=== PATIENT | female | born 1940 | race Caucasian/White ===

== ENCOUNTER 2024-12-11 01:54 | Observation (INO) | payer OTHER ==
[2024-12-11] MEDS ORDERED: NA CHLORIDE 0.9% 500 ML ONE (02:19)
[2024-12-11] MEDS ORDERED: ONDANSETRON 4 MG/2 ML VIAL ONE ×3 (02:19→08:22)
[2024-12-11] MEDS ORDERED: BISACODYL E.C. 5 MG TAB PO ONE (02:19)
[2024-12-11] MEDS ORDERED: LACTULOSE 20 GM/30 ML UCUP ONE ×2 (02:20→04:54)
[2024-12-11 03:05] LABS: Albumin 3.6 g/dL (3.4-5.0); Anion Gap 9.6 mEq/L (5.0-15.0); Bilirubin Total 0.3 mg/dL (0.2-1.0); Globulin 3.7 g/dL (2.3-3.5); Magnesium 2.2 mg/dL (1.6-2.4); Potassium 3.6 mEq/L (3.5-5.1); Protein, Total 7.3 g/dL (6.4-8.2)
[2024-12-11 03:08] LABS: Specific Gravity 1.016 (1.005-1.030); Sqamous Epithelial None Seen /HPF (None Seen); Urine Bacteria None Seen /HPF (<20); Urine Bilirubin NEGATIVE (Negative); Urine Blood Negative (Negative); Urine Clarity Extremely Turbid (Clear); Urine Color Light-Yellow (Yellow); Urine Culture Reflex Order NOT NEEDED; Urine Glucose NEGATIVE (Negative); Urine Ketones NEGATIVE (Negative); Urine Microscopic Reflex YN ORDER UMIC; Urine Nitrite NEGATIVE (Negative); Urine Protein NEGATIVE (Negative); Urine RBC None Seen /HPF (None Seen); Urine Urobilinogen Normal (Normal); Urine WBC None Seen /HPF (<5)
[2024-12-11 03:15] LABS: Absolute Eosinophils 0.1 K/uL (0-0.5); Absolute Lymphocytes (CBC) 0.9 K/uL (0.7-4.9); Absolute Monocytes 0.6 K/uL (0.1-1.3); Absolute Neutrophil 6.4 K/uL (1.8-8.0); Basophils % 0.5 % (0-1.3); Eosinophils % 1.6 % (0-4.4); Hematocrit 41.8 % (36.0-45.0); Hemoglobin 14.2 g/dL (12.0-15.0); Lymphocytes % 11.6 % (15.3-44.8); MCH 29.4 pg (27.0-35.0); MCV 86.7 fL (80-100); Monocytes % 7.6 % (3.3-12.3); Neutrophils % 78.7 % (41.7-73.7); Nucleated Red Blood Cells % 0.1 % (0-0); Platelets 172 thou/uL (152-406); RBC Red Blood Cell Count 4.82 M/uL (3.86-4.86); Red Cell Distribution Width 14.4 % (12.1-15.2)
--- NOTE | 2024-12-11 06:23 | RAD REPORT ---
EXAM DESCRIPTION: Abdomen Pelvis W Contrast CLINICAL HISTORY: Abd pain;Constipation COMPARISON: August 05, 2019 CT Abdomen Without Then With Contrast. No Prior Images. January 04, 2019 CT Abdomen Wit hout Then With Contrast. November 20, 2022 Ultrasound Kidney Bilateral. TECHNIQUE: Contiguous axial sections of the abdomen and pelvis were obtained with intravenous contrast. This exa m was performed according to our departmental dose-optimization program, which includes automated exposure control, adjustment of the mA and/or kV according to patient size and/or use of iterative re construction technique. FINDINGS: Lower Chest: The imaged lung bases are clear. No pleural or pericardial effusion. There is a minimal sliding-type hiatal hernia. Organs: The liver, spleen, gallbladder, pancreas, and adrenal glands are normal. The right kidney is normal. Left kidney demonstrates cortical scarring with postsurgical resection changes. GI/Bowel: There are no CT findings of small bowel obstruction. Moderate-large amount of retained feca l debris throughout the colon. The cecum is distended up to 6 cm. The appendix is not visualized. No acute bowel wall inflammation. Pelvis: The rectum is moderately distended with fecal debris suggesting impaction. The bladder is nor mal. No adenopathy or free fluid. There are postsurgical changes at the rectosigmoid junction. Peritoneum/Retroperitoneum: No intraperitoneal free air. No intraperitoneal free fluid. No mesenteric or retroperitoneal lymphadenopathy. Bones/Soft Tissues: There are no suspicious-appearing lytic or blastic osseous lesions. IMPRESSION: 1. Constipation with rectal fecal impaction. 2. Postsurgical changes left kidney. RECOMMENDATIONS: Electronically signed by: Bonifacio Landin MD 12/11/2024 06:[address] [facility] Due to temporary technical issues with the PACS/[employer] reporting system, reports are being billie d by the in-house radiologist without review as a courtesy to ensure prompt reporting the interpreting radiologist is fully responsible for the content of the report. Transcribed Date/Time: 12/11/2024 6:23 AM
[2024-12-11] MEDS ORDERED: NA CHLORIDE 0.9% 1,000 ML ONE ×2 (06:24→08:11)
--- NOTE | 2024-12-11 06:31 | EDPHYS ---
Physician Documentation [facility] Name: Petrona Michael Age: 84 yrs Sex: Female : 1940 Arrival Date: 12/11/2024 Time: 01:54 Bed 4 Private MD: ED Physician Alex Montes HPI: 12/11 02:15 This 84 yrs old Female presents to ER via Ambulatory with complaints of Constipation, cp Abdominal Pain. 02:15 The patient presents with abdominal pain constipation. Onset: The symptoms/episode cp began/occurred gradually, and became worse today. 02:15 Associated signs and symptoms: Pertinent positives: constipation, last bowel movement 3 cp weeks ago, Pertinent negatives: blood in stools, diarrhea, fever, vomiting. Severity of pain: in the emergency department the pain is unchanged despite home interventions. Historical: - Allergies: 02:16 No Known Allergies; bm8 - Home Meds: 02:16 Unable to obtain [Active]; bm8 - PMHx: 02:16 Hypertensive disorder; bm8 - PSHx: 02:16 Appendectomy; section; bm8 - Immunization history:: Adult Immunizations up to date. - Infectious Disease History:: Denies. - Social history:: Smoking status: Patient denies any tobacco usage or history of. ROS: 02:20 Constitutional: Negative for body aches, chills, fever, poor PO intake, cp 02:20 Eyes: Negative for injury, pain, redness, and discharge, cp 02:20 ENT: Negative for drainage from ear(s), ear pain, sore throat, difficulty swallowing, difficulty handling secretions, 02:20 Cardiovascular: Negative for chest pain, palpitations, 02:20 Respiratory: Negative for cough, shortness of breath, wheezing, 02:20 Abdomen/GI: Positive for abdominal pain, nausea, constipation, Negative for vomiting, diarrhea, black/tarry stool, rectal bleeding, 02:20 Neuro: Negative for altered mental status, dizziness, headache, numbness, weakness, 02:20 All other systems are negative, Exam: 02:25 Constitutional: The patient appears in no acute distress, alert, awake, non-toxic, well cp developed, well nourished, uncomfortable, 02:25 Head/Face: Normocephalic, atraumatic. cp 02:25 Eyes: Periorbital structures: appear normal, Conjunctiva: normal, no exudate, no injection, Sclera: no appreciated abnormality, Lids and lashes: appear normal, bilaterally, 02:25 ENT: External ear(s): are unremarkable, Mouth: Lips: moist, Oral mucosa: moist, Posterior pharynx: Airway: no evidence of obstruction, patent, 02:25 Chest/axilla: Inspection: normal, 02:25 Cardiovascular: Rate: normal, 02:25 Respiratory: the patient does not display signs of respiratory distress, Respirations: normal, no use of accessory muscles, no retractions, 02:25 Abdomen/GI: Inspection: abdomen appears normal, Bowel sounds: active, all quadrants, Palpation: soft, in all quadrants, moderate abdominal tenderness, in the right lower quadrant and left lower quadrant, rebound tenderness, is not appreciated, involuntary guarding, is not appreciated, 02:25 Neuro: Orientation: to person, place \T\ time. Mentation: is normal, Vital Signs: 02:03 BP 173 / 71; Pulse 66; Resp 16; Temp 97.8; Pulse Ox 99% ; Weight 45.81 kg; Height 4 ft. bm8 10 in. ; Pain 8/10; 03:00 BP 151 / 75; Pulse 64; Resp 18; Pulse Ox 94% on R/A; kd3 03:30 BP 148 / 74; Pulse 66; Resp 17; Pulse Ox 98% on R/A; kd3 04:27 BP 162 / 72; Pulse 74; Resp 18; Pulse Ox 98% on R/A; kd3 05:01 BP 148 / 89; Pulse 72; Resp 18; Pulse Ox 97% on R/A; kd3 06:06 BP 149 / 88; Pulse 81; Resp 19; Pulse Ox 98% on R/A; kd3 06:48 BP 98 / 43; Pulse 62; Resp 17; Temp 97.8; Pulse Ox 95% ; Pain 7/10; bm8 07:03 Pulse Ox 98% on 2 lpm NC; kd3 07:20 BP 168 / 87; Pulse 72; Resp 16 S; Temp 97.5(TE); Pulse Ox 100% on R/A; aa5 02:03 Body Mass Index 21.11 (45.81 kg, 147.32 cm) bm8 02:03 Pain Scale: Adult bm8 06:48 Pain Scale: Adult bm8 [place] Coma Score: 05:29 Eye Response: spontaneous(4). Motor Response: obeys commands(6). Verbal Response: bm8 oriented(5). Total: 15. 06:48 Eye Response: spontaneous(4). Motor Response: obeys commands(6). Verbal Response: bm8 oriented(5). Total: 15. MDM: 02:03 Medical Screening Exam initiated meryl 03:00 Differential diagnosis: bowel obstruction, diverticulitis, gastritis, urinary tract cp infection, constipation, fecal impaction. 12/11 02:13 Order name: CBC with Diff; Complete Time: 03:23 cp 12/11 03:23 Interpretation: Normal except: GROVER% 78.7; LYM% 11.6. cp 12/11 02:13 Order name: CMP; Complete Time: 03:23 cp 12/11 03:23 Interpretation: Normal except: NA 133; GLUC 116; BUN 23; GFR 88; ALK 134; GLOB 3.7; A/G cp 1.0. 12/11 02:13 Order name: Lipase; Complete Time: 03:23 cp 12/11 02:13 Order name: Magnesium; Complete Time: 03:23 cp 12/11 03:27 Interpretation: Reviewed. cp 12/11 02:13 Order name: UA Rfx Nolan Cult if indicated; Complete Time: 03:23 cp 12/11 03:24 Interpretation: Normal except: [facility] Extremely Turbid; UESTR 25; JONATHAN Cx 2+. cp 12/11 07:50 Order name: Basic Metabolic Panel EDMS 12/11 07:50 Order name: Basic Metabolic Panel EDMS 12/11 07:50 Order name: Basic Metabolic Panel EDMS 12/11 07:50 Order name: Basic Metabolic Panel EDMS 12/11 07:50 Order name: Basic Metabolic Panel EDMS 12/11 07:50 Order name: Basic Metabolic Panel EDMS 12/11 07:50 Order name: CBC with Automated Diff EDMS 12/11 07:50 Order name: CBC with Automated Diff EDMS 12/11 07:50 Order name: CBC with Automated Diff EDMS 12/11 07:50 Order name: CBC with Automated Diff EDMS 12/11 07:50 Order name: CBC with Automated Diff EDMS 12/11 07:50 Order name: CBC with Automated Diff EDMS 12/11 07:50 Order name: Magnesium EDMS 12/11 07:50 Order name: Magnesium EDMS 12/11 07:50 Order name: Magnesium EDMS 12/11 07:50 Order name: Magnesium EDMS 12/11 07:50 Order name: Magnesium EDMS 12/11 07:50 Order name: Magnesium EDMS 12/11 07:50 Order name: Phosphorus EDMS 12/11 07:50 Order name: Phosphorus EDMS 12/11 07:50 Order name: Phosphorus EDMS 12/11 07:50 Order name: Phosphorus EDMS 12/11 07:50 Order name: Phosphorus EDMS 12/11 07:50 Order name: Phosphorus EDMS 12/11 02:13 Order name: CT Abd/Pelvis - PO and IV Contrast cp 12/11 02:13 Order name: IV Saline Lock; Complete Time: 02:34 cp 12/11 02:13 Order name: Labs collected and sent; Complete Time: 02:34 cp Administered Medications: 02:34 Drug: Ondansetron IVP 4 mg IVP once; over 2 minutes Route: IVP; Site: right antecubital;kd3 06:44 Follow up: Response: No adverse reaction bm8 02:34 Drug: NS 0.9% IV 500 ml 500 ml IV at 1 bolus once; to be given as a bolus over 60 kd3 minutes Volume: 500 ml; Route: IV; Rate: 1 bolus; Site: right antecubital; 06:44 Follow up: Response: No adverse reaction; IV Status: Completed infusion bm8 02:34 Drug: Lactulose PO 30 grams 45 ml PO once Volume: 45 ml; Route: PO; kd3 06:44 Follow up: Response: No adverse reaction bm8 02:34 Drug: Dulcolax PO Delayed Release Tablet 5 mg PO once Route: PO; kd3 06:44 Follow up: Response: No adverse reaction bm8 04:56 Drug: Lactulose PO 30 grams 45 ml PO once Volume: 45 ml; Route: PO; kd3 06:44 Follow up: Response: No adverse reaction bm8 06:29 Drug: Ondansetron IVP 4 mg IVP once; over 2 minutes Route: IVP; Site: right antecubital;bm8 06:44 Follow up: Response: No adverse reaction bm8 06:29 Drug: NS 0.9% IV 1000 ml IV at 1000 ml once; to be given as a bolus over 60 minutes bm8 Route: IV; Rate: 1000 ml; Site: right antecubital; 07:30 Follow up: IV Status: Completed infusion; IV Intake: 1000ml aa5 06:43 Drug: morphine IVP or IV 2 mg IVP once over 4 mins Route: IVP; Infused Over: 4 mins; bm8 Site: right antecubital; 07:20 Follow up: Response: No adverse reaction; Pain is decreased aa5 06:43 Drug: Dulcolax [place] Suppository 10 mg [place] once Route: [place]; bm8 06:44 Follow up: Response: No adverse reaction bm8 Disposition Summary: 12/11/24 06:30 Hospitalization Ordered Notes: Hospitalization Status: Observation [facility] Provider: Christiano Ware cha Location: Telemetry/MedSurg (observation) meryl Condition: Fair meryl Problem: new meryl Symptoms: have improved meryl Bed/Room Type: Standard [facility] Room Assignment: 231(12/11/24 08:24) ss Diagnosis - Abdominal pain, Generalized meryl - Nausea meryl - Constipation - with fecal impaction [facility] Discharge Instructions: - Abdominal Pain, Adult meryl - Abdominal Pain, Adult, [id number] meryl - Discharge Summary Sheet cp - Constipation, Adult cp Forms: - Medication Reconciliation Form meryl - SBAR form [facility] - Leadership Thank You Letter [facility] Prescriptions: - Dulcolax (bisacodyl) 10 mg Rectal suppository - insert 1 suppository RECTAL route every 12 hours for 5 days; 10 suppository; [facility] Refills: 0, Product Selection Permitted - Miralax 17 gram Oral powder in packet - take 1 packet ORAL route daily as needed for constipation; 10 packet; Refills: meryl 0, Product Selection Permitted - Lactulose 10 gram/15 mL Oral solution - take 30 milliliters ORAL route every 12 hours As needed until bowel movement; cp 300 milliliter; Refills: 0, Product Selection Permitted Signatures: Dispatcher [employer] Alex Sanchez MD MD cha Blanchard, Shelby RN RN ss Alex Shay PA PA cp Doucette, Kyli RN RN kd3 Alfredo Maldonado RN RN bm8 Beatrice Nelson RN aa5 Corrections: (The following items were deleted from the chart) 02:16 02:16 Home Meds: None; bm8 bm8 08:24 06:30 meryl ss
--- NOTE | 2024-12-11 06:31 | ER ---
Nurse's Notes [facility] Name: Petrona Michael Age: 84 yrs Sex: Female : 1940 Arrival Date: 12/11/2024 Time: 01:54 Bed 4 Private MD: Diagnosis: Abdominal pain, Generalized;Nausea;Constipation-with fecal impaction Presentation: 12/11 02:03 Chief complaint: Patient states: I havent been able to poop in 3 weeks. bm8 02:03 Coronavirus screen: At this time, the client does not indicate any symptoms associated bm8 with coronavirus-19. Ebola Screen: Patient negative for fever greater than or equal to 101.5 degrees Fahrenheit, and additional compatible Ebola Virus Disease symptoms Patient denies exposure to infectious person. Patient denies travel to an Ebola-affected area in the 21 days before illness onset. No symptoms or risks identified at this time. Initial Sepsis Screen: Does the patient meet any 2 criteria? No. Patient's initial sepsis screen is negative. Does the patient have a suspected source of infection? No. Patient's initial sepsis screen is negative. Risk Assessment: Do you want to hurt yourself or someone else? Patient reports no desire to harm self or others. Onset of symptoms was November 20, 2024. 02:03 Method Of Arrival: Ambulatory bm8 02:03 Acuity: KATHRYN 3 bm8 Triage Assessment: 02:16 General: Appears in no apparent distress. uncomfortable, Behavior is calm, cooperative, bm8 appropriate for age. Pain: Complains of pain in abdomen Pain currently is 8 out of 10 on a pain scale. EENT: No deficits noted. No signs and/or symptoms were reported regarding the EENT system. Neuro: No deficits noted. Level of Consciousness is awake, alert, obeys commands, Oriented to person, place, time, situation, Appropriate for age. Cardiovascular: Denies chest pain, Heart tones S1 S2 present Capillary refill < 3 seconds in bilateral fingers Patient's skin is warm and dry. Respiratory: Airway is patent Respiratory effort is even, unlabored, Respiratory pattern is regular, symmetrical, Breath sounds are clear bilaterally. GI: Abdomen is flat, non-distended, Bowel sounds hypoactive in right lower quadrant and left lower quadrant Reports constipation. : No signs and/or symptoms were reported regarding the genitourinary system. Derm: No signs and/or symptoms reported regarding the dermatologic system. Musculoskeletal: No signs and/or symptoms reported regarding the musculoskeletal system. Historical: - Allergies: 02:16 No Known Allergies; bm8 - Home Meds: 02:16 Unable to obtain [Active]; bm8 - PMHx: 02:16 Hypertensive disorder; bm8 - PSHx: 02:16 Appendectomy; section; bm8 - Immunization history:: Adult Immunizations up to date. - Infectious Disease History:: Denies. - Social history:: Smoking status: Patient denies any tobacco usage or history of. Screenin:35 [facility] ED Fall Risk Assessment (Adult) History of falling in the last 3 months, kd3 including since admission No falls in past 3 months (0 pts) Confusion or Disorientation No (0 pts) Intoxicated or Sedated No (0 pts) Impaired Gait No (0 pts) Mobility Assist Device Used No (0 pt) Altered Elimination No (0 pt) Score/Fall Risk Level 0 - 2 = Low Risk Oriented to surroundings. Abuse screen: Denies threats or abuse. Denies injuries from another. Nutritional screening: No deficits noted. Tuberculosis screening: No symptoms or risk factors identified. Assessment: 02:35 General: pt assisted to the restroom via wheelchair for urine sample collection. Pt IV kd3 access in the right A/C, pt placed back on continuous monitoring. No further requests at this time. . 04:09 Reassessment: pt to ct. bm8 05:29 Reassessment: pt has made two attempts to have bowel movement. First had watery bm8 diarrhea and the 2nd attempt was a small amount of stool. Pt is currently resting in bed and denies pain. Pain: Denies pain. Neuro: No deficits noted. Level of Consciousness is alert, obeys commands, Oriented to person, place, time, situation. Cardiovascular: Denies chest pain, Capillary refill < 3 seconds in bilateral fingers Patient's skin is warm and dry. Respiratory: Airway is patent Respiratory effort is even, unlabored, Respiratory pattern is regular, symmetrical. GI: Bowel sounds present X 4 quads. Abd is soft and non tender X 4 quads. Reports diarrhea. : No signs and/or symptoms were reported regarding the genitourinary system. EENT: No signs and/or symptoms were reported regarding the EENT system. Derm: No signs and/or symptoms reported regarding the dermatologic system. Musculoskeletal: No signs and/or symptoms reported regarding the musculoskeletal system. 06:06 General: Pt is independently ambulatory to the restroom. . kd3 06:48 Reassessment: Patient appears in no apparent distress at this time. Patient and/or bm8 family updated on plan of care and expected duration. Pain level reassessed. Patient is alert, oriented x 3, equal unlabored respirations, skin warm/dry/pink. Pain: Complains of pain in rectum Pain currently is 7 out of 10 on a pain scale. 07:03 General: Pt desaturating while resting. PT placed on 2 L N/C. . kd3 08:20 Reassessment: Patient is alert, oriented x 3, equal unlabored respirations, skin aa5 warm/dry/pink. Pt back from restroom, pt ambulatory with steady gait, pt reports small BM. Pt c/o indigestion and nausea, see [employer] for medications administered. . 09:05 Reassessment: Patient is alert, oriented x 3, equal unlabored respirations, skin aa5 warm/dry/pink. Vital Signs: 02:03 BP 173 / 71; Pulse 66; Resp 16; Temp 97.8; Pulse Ox 99% ; Weight 45.81 kg; Height 4 ft. bm8 10 in. ; Pain 8/10; 03:00 BP 151 / 75; Pulse 64; Resp 18; Pulse Ox 94% on R/A; kd3 03:30 BP 148 / 74; Pulse 66; Resp 17; Pulse Ox 98% on R/A; kd3 04:27 BP 162 / 72; Pulse 74; Resp 18; Pulse Ox 98% on R/A; kd3 05:01 BP 148 / 89; Pulse 72; Resp 18; Pulse Ox 97% on R/A; kd3 06:06 BP 149 / 88; Pulse 81; Resp 19; Pulse Ox 98% on R/A; kd3 06:48 BP 98 / 43; Pulse 62; Resp 17; Temp 97.8; Pulse Ox 95% ; Pain 7/10; bm8 07:03 Pulse Ox 98% on 2 lpm NC; kd3 07:20 BP 168 / 87; Pulse 72; Resp 16 S; Temp 97.5(TE); Pulse Ox 100% on R/A; aa5 02:03 Body Mass Index 21.11 (45.81 kg, 147.32 cm) bm8 02:03 Pain Scale: Adult bm8 06:48 Pain Scale: Adult bm8 [place] Coma Score: 05:29 Eye Response: spontaneous(4). Motor Response: obeys commands(6). Verbal Response: bm8 oriented(5). Total: 15. 06:48 Eye Response: spontaneous(4). Motor Response: obeys commands(6). Verbal Response: bm8 oriented(5). Total: 15. ED Course: 01:59 Patient arrived in ED. gm2 01:59 Alex Shay PA is PHCP. cp 02:00 Alex Montes MD is Attending Physician. cp 02:14 Alfredo Maldonado, RN is Primary Nurse. bm8 02:16 Triage completed. bm8 02:16 Arm band placed on right wrist. bm8 02:35 No provider procedures requiring assistance completed. Inserted saline lock: 22 gauge kd3 in right antecubital area, using aseptic technique. Blood collected. Flushed with 10 mL NS. 02:36 Patient has correct armband on for positive identification. Provided Education on: kd3 contrast . 04:14 CT Abd/Pelvis - PO and IV Contrast In Process Unspecified. EDMS 06:29 Christiano Ware MD is Hospitalizing Provider. meryl 06:32 Served as a adjustment clerk during rectal exam. kd3 08:28 Patient admitted, IV remains in place. aa5 Administered Medications: 02:34 Drug: Ondansetron IVP 4 mg IVP once; over 2 minutes Route: IVP; Site: right antecubital;kd3 06:44 Follow up: Response: No adverse reaction bm8 02:34 Drug: NS 0.9% IV 500 ml 500 ml IV at 1 bolus once; to be given as a bolus over 60 kd3 minutes Volume: 500 ml; Route: IV; Rate: 1 bolus; Site: right antecubital; 06:44 Follow up: Response: No adverse reaction; IV Status: Completed infusion bm8 02:34 Drug: Lactulose PO 30 grams 45 ml PO once Volume: 45 ml; Route: PO; kd3 06:44 Follow up: Response: No adverse reaction bm8 02:34 Drug: Dulcolax PO Delayed Release Tablet 5 mg PO once Route: PO; kd3 06:44 Follow up: Response: No adverse reaction bm8 04:56 Drug: Lactulose PO 30 grams 45 ml PO once Volume: 45 ml; Route: PO; kd3 06:44 Follow up: Response: No adverse reaction bm8 06:29 Drug: Ondansetron IVP 4 mg IVP once; over 2 minutes Route: IVP; Site: right antecubital;bm8 06:44 Follow up: Response: No adverse reaction bm8 06:29 Drug: NS 0.9% IV 1000 ml IV at 1000 ml once; to be given as a bolus over 60 minutes bm8 Route: IV; Rate: 1000 ml; Site: right antecubital; 07:30 Follow up: IV Status: Completed infusion; IV Intake: 1000ml aa5 06:43 Drug: morphine IVP or IV 2 mg IVP once over 4 mins Route: IVP; Infused Over: 4 mins; bm8 Site: right antecubital; 07:20 Follow up: Response: No adverse reaction; Pain is decreased aa5 06:43 Drug: Dulcolax [place] Suppository 10 mg OR once Route: OR; bm8 06:44 Follow up: Response: No adverse reaction bm8 Medication: 02:35 VIS not applicable for this client. kd3 Intake: 07:30 IV: 1000ml; Total: 1000ml. aa5 Outcome: 06:30 Decision to Hospitalize by Provider. meryl 09:05 Admitted to Med/surg accompanied by tech, via wheelchair, with chart, aa5 09:05 Condition: stable 09:05 Instructed on the need for admit, Demonstrated understanding of instructions, 09:07 Patient left the ED. aa5 Signatures: Dispatcher [employer] EDKY Alex Montes MD MD cha Calderon, Audri, RN RN aa5 Alex Shay PA PA cp Doucette, Kyli RN RN mare3 Sandra Chan 2 Alfredo Maldonado RN RN bm8 Corrections: (The following items were deleted from the chart) 02:16 02:16 Home Meds: None; bm8 bm8
[2024-12-11] MEDS ORDERED: MORPHINE 2 MG/ML SYR ONE (06:36)
[2024-12-11] MEDS ORDERED: BISACODYL 10 MG RECTAL SUPP ONE (06:37)
[2024-12-11] MEDS ORDERED: ACETAMINOPHEN 325 MG TABLET PO PRN (07:43)
--- NOTE | 2024-12-11 07:53 | P.HP ---
Certification for Inpatient Patient admitted to: Observation With expected LOS: <2 Midnights Practitioner: I am a practitioner with admitting privileges, knowledge of patient current condition, hospital course, and medical plan of care. Services: Services provided to patient in accordance with Admission requirements found in Title 42 Section 412.3 of the Code of Federal Regulations Patient History Date of Service: 12/11/24 Reason for admission: severe constipation History of Present Illness: Petrona Michael is an 84 year old female with pmhx hypertension who presents to the ED with chief complaint of abdominal pain. She reports her last normal bowel movement was three weeks ago and does experience constipation but it has never been this bad before. While in the ED she was given Dulcolax and lactulose. On evaluation, she is found to have abdomen is distended and tender, she denies fever, chills, chest pain, and shortness of breath. Laboratory evaluation significant for sodium 133, Serum glucose 116, Alk phos 134, left shift neutrophils 78.7. CT abd/pelvis "Constipation with rectal fecal impaction. Postsurgical changes left kidney." Petrona will be admitted to the hospitalist service for further treatment of severe constipation. Allergies No Known Allergies Allergy (Unverified 12/11/24 08:08) Home Medications: Gabapentin 300 mg PO DAILY 12/11/24 Levothyroxine Sodium [Synthroid] 75 mcg PO DAILY 12/11/24 Losartan Potassium 100 mg PO DAILY 12/11/24 hydrOXYzine HCL [Atarax*] 25 mg PO TID PRN 12/11/24 - Past Medical/Surgical History -: Hypertension -: hypothyroidism -: appendectomy -: - Family History Family History: Reviewed- Non-Contributory - Social History Smoking Status: Never smoker Alcohol use: No CD- Drugs: No Review of Systems Other: per HPI Physical Examination - Physical Exam General: Alert, Oriented x3, Other (uncomfortable) HEENT: Atraumatic, Normocephalic, PERRLA Neck: Supple, 2+ carotid pulse no bruit Respiratory: Clear to auscultation bilaterally, Normal air movement Cardiovascular: Normal pulses, Regular rate/rhythm, Normal S1 S2 Capillary refill: <2 Seconds Gastrointestinal: Normal bowel sounds Musculoskeletal: No swelling Integumentary: No rashes Neurological: Normal speech, Normal tone - Studies Laboratory Data (last 24 hrs) 12/11/24 12/11/24 02:33 02:33 WBC 8.10 Hgb 14.2 Hct 41.8 Plt Count 172 Sodium 133 L Potassium 3.6 BUN 23 H Creatinine 0.66 Glucose 116 H Magnesium 2.2 Total Bilirubin 0.3 AST 19 ALT 21 Alkaline Phosphatase 134 H Lipase 29 Assessment and Plan - Plan Assessment and plan Severe constipation History of GERD -CT abd/pelvis "Constipation with rectal fecal impaction. Postsurgical changes left kidney." -Lactulose and dulcolax given in the ED -mineral oil -Protonix BID, tums -continuous telemetry -monitor BM -repeat BMP -Gentle IVF Hypertension Hypothyroidism -continue home medications DVT ppx lovenox Full code LOS 24 hour OBS - Advance Directives Does patient have a Living Will: No Does patient have a Durable POA for Healthcare: No
[2024-12-11] MEDS ORDERED: SODIUM CHLORIDE 0.9% 10ML INJ IV PRN (08:02)
[2024-12-11] MEDS ORDERED: CALCIUM CARBONATE CHEW 500MG TAB PO PRN (08:03)
[2024-12-11] MEDS ORDERED: ENOXAPARIN 40 MG/0.4 ML SQ ONE (08:11)
[2024-12-11] MEDS: PANTOPRAZOLE 40 MG INJ IVP SCH (08:20)
[2024-12-11] MEDS: NA CHLORIDE 0.9% 1,000 ML IV SCH (08:20)
[2024-12-11] MEDS: ENOXAPARIN 40 MG/0.4 ML SQ SCH (08:26)
[2024-12-11] MEDS: ONDANSETRON 4 MG/2 ML VIAL IV PRN (08:26)
[2024-12-11] MEDS: MINERAL OIL 30 ML UCUP PO ONE (09:00)
[2024-12-11 09:24] VITALS: O2SAT 100
[2024-12-11 12:06] VITALS: BMI 21.1
[2024-12-11 18:23] LABS: Magnesium 2.2 mg/dL (1.6-2.4); Phosphorus 2.2 mg/dL (2.5-4.9)
[2024-12-11] MEDS: POTASS/SODIUM PHOSPHATE 1 PKT POWD.PACK PO SCH (20:14)
[2024-12-11] MEDS: POTASSIUM CL SA 10 MEQ TAB PO ONE (20:14)
[2024-12-11] MEDS ORDERED: hydrOXYzine HCL 25 MG TAB PO PRN (20:37)
[2024-12-12 03:23] LABS: Absolute Eosinophils 0.1 K/uL (0-0.5); Absolute Lymphocytes (CBC) 1.5 K/uL (0.7-4.9); Absolute Monocytes 0.6 K/uL (0.1-1.3); Absolute Neutrophil 5.1 K/uL (1.8-8.0); Basophils % 0.5 % (0-1.3); Eosinophils % 1.5 % (0-4.4); Hematocrit 39.6 % (36.0-45.0); Hemoglobin 13.4 g/dL (12.0-15.0); Lymphocytes % 20.5 % (15.3-44.8); MCH 29.2 pg (27.0-35.0); MCHC 33.9 g/dL (32.0-36.0); MCV 86.2 fL (80-100); MPV 8.6 fL (7.6-11.3); Monocytes % 7.7 % (3.3-12.3); Neutrophils % 69.8 % (41.7-73.7); Nucleated Red Blood Cells % 0.2 % (0-0); Platelets 179 thou/uL (152-406); Red Cell Distribution Width 14.6 % (12.1-15.2)
[2024-12-12 03:34] LABS: Anion Gap 10.3 mEq/L (5.0-15.0); Magnesium 2.2 mg/dL (1.6-2.4); Phosphorus 3.3 mg/dL (2.5-4.9); Potassium 4.3 mEq/L (3.5-5.1)
[2024-12-12] MEDS: GABAPENTIN 300 MG CAP PO SCH (09:14)
[2024-12-12] MEDS: LEVOTHYROXINE SOD 0.075 MG TAB PO SCH (09:14)
[2024-12-12] MEDS: LOSARTAN POTASSIUM 50 MG TABLET PO SCH (09:14)
[2024-12-12 12:43] VITALS: BP 115/58; TEMP 97.8
--- NOTE | 2024-12-12 14:30 | P.DS ---
Admission Date: 12/11/24 Discharge Date: 12/12/24 Disposition: ROUTINE DISCHARGE Discharge Condition: GOOD Reason for Admission: severe constipation Brief History of Present Illness: Diagnosis Severe constipation with rectal fecal impaction History of GERD Hypertension Hypothyroidism [facility] 12/11/2024 Petrona Michael is an 84 year old female with pmhx hypertension who presents to the ED with chief complaint of abdominal pain. She reports her last normal bowel movement was three weeks ago and does experience constipation but it has never been this bad before. While in the ED she was given Dulcolax and lactulose. On evaluation, she is found to have abdomen is distended and tender, she denies fever, chills, chest pain, and shortness of breath. Laboratory evaluation significant for sodium 133, Serum glucose 116, Alk phos 134, left shift neutrophils 78.7. CT abd/pelvis "Constipation with rectal fecal impaction. Postsurgical changes left kidney." Petrona will be admitted to the hospitalist service for further treatment of severe constipation. Hospital Course: Severe constipation with rectal fecal impaction History of GERD CT abd/pelvis "Constipation with rectal fecal impaction. Postsurgical changes left kidney." Lactulose, dulcolax, and mineral oil administered with good stool production Protonix BID, tums administered for acid reflex symptoms continuous telemetry with no acute events noted Replaced electrolytes with stable labs this morning Hypertension Hypothyroidism continued home medications ON 12/12/24, Petrona was seen on morning rounds. She reports no more bowel movement this morning and is tolerating a PO diet. She is ambulating independently. Instructions to use dulcolax daily to prevent constipation but to stop if stool becomes loose. Physical Exam General: Alert, Oriented x3, NAD HEENT: Atraumatic, Normocephalic, PERRLA Respiratory: Clear BBS, Normal air movement, on RA Cardiovascular: Normal pulses, RRR, Normal S1 S2 Capillary refill: <2 Seconds Gastrointestinal: Soft on palpation, nondistended Musculoskeletal: No swelling Integumentary: No rashes Neurological: Normal speech, Normal tone Vital Signs/Physical Exam: Temp Pulse Resp BP Pulse Ox 97.8 F 64 12 115/58 L 99 12/12/24 12:00 12/12/24 12:00 12/12/24 12:00 12/12/24 12:00 12/12/24 12:00 Laboratory Data at Discharge: WBC 7.30 thou/uL (4.3-10.9) 12/12/24 03:07 Hgb 13.4 g/dL (12.0-15.0) 12/12/24 03:07 Hct 39.6 % (36.0-45.0) 12/12/24 03:07 Plt Count 179 thou/uL (152-406) 12/12/24 03:07 Sodium 138 mEq/L (136-145) 12/12/24 03:07 Potassium 4.3 mEq/L (3.5-5.1) D 12/12/24 03:07 BUN 11 mg/dL (7-18) 12/12/24 03:07 Creatinine 0.61 mg/dL (0.55-1.02) 12/12/24 03:07 Glucose 94 mg/dL (74-106) 12/12/24 03:07 Phosphorus 3.3 mg/dL (2.5-4.9) 12/12/24 03:07 Magnesium 2.2 mg/dL (1.6-2.4) 12/12/24 03:07 Total Bilirubin 0.3 mg/dL (0.2-1.0) 12/11/24 02:33 AST 19 U/L (15-37) 12/11/24 02:33 ALT 21 U/L (13-56) 12/11/24 02:33 Alkaline Phosphatase 134 U/L (45-117) H 12/11/24 02:33 Lipase 29 U/L (13-75) 12/11/24 02:33 Home Medications: Gabapentin 300 mg PO DAILY 12/11/24 Levothyroxine Sodium [Synthroid] 75 mcg PO DAILY 12/11/24 Losartan Potassium 100 mg PO DAILY 12/11/24 hydrOXYzine HCL [Atarax*] 25 mg PO TID PRN 12/11/24 bisacodyL [Dulcolax] 5 mg PO DAILY 30 Days #30 tab 12/12/24 New Medications: bisacodyL [Dulcolax] 5 mg PO DAILY 30 Days #30 tab Physician Discharge Instructions: 1. Please call and schedule a follow-up appointment with your PCP in 3-5 days - Please follow-up with your PCP for medication refills/adjustments -Discuss constipation problems 2. Please call and schedule a follow-up appointment with Dr. Sifuentes in 1-2 weeks 3. Continue high fiber diet 4. No activity restrictions 5. Return to the ED if symptoms worsen New medications Dulcolax 5 mg daily x 30 days Diet: Regular Activity: Ad lia Followup: BETTY HERNÁNDEZ [Primary Care Provider] -
== END 2024-12-12 15:37 | disposition home or self-care (01) ==
LOC: ER 01:54 → ERHOLD 07:43 → 2ND 08:53
PROVIDERS: ADMIT Hospitalist; ATTEND Hospitalist
DX: K59.00 Constipation, unspecified (principal); K56.41 Fecal impaction; I10 Essential (primary) hypertension; R10.9 Unspecified abdominal pain; E03.9 Hypothyroidism, unspecified; K21.9 Gastro-esophageal reflux disease without esophagitis
CPT/HCPCS: 96361; 85025 ×2; 81001; 80048 ×2; 36415 ×2; 83735 ×3; 84100 ×2; 83690; 80053; 74177; 96375; 96374; 99285; Q9967; J2470 ×3; J1650; J2270; J2405 ×3; J7040; J7030 ×2; G0378